=== PATIENT | female | born 1980 | race Caucasian/White ===

== ENCOUNTER 2016-10-14 21:54 | Emergency (ER) | payer BC, OTHER ==
[~2016-10-14] VITALS: Ht 170.2 cm; Wt 110.0 kg
[2016-10-14 23:15] LABS: HEMATOCRIT 37.4 % (36.0-46.0); MCH 28.5 PG (29.0-34.0); MCHC 32.9 G/DL (30.0-36.0); MCV 86.8 FL (83-99); PLATELET COUNT 307 K/uL (156-360); RBC DIS.WIDTH-CV 12.8 % (11.8-14.6); RBC DIS.WIDTH-SD 41.1 % (39-53); RED BLOOD COUNT 4.31 M/uL (3.80-5.20); WHITE BLOOD COUNT 12.3 K/uL (4.1-10.2)
[2016-10-14 23:26] LABS: CHLORIDE 105 mEq/L (99-109); POTASSIUM 3.8 mEq/L (3.7-5.4); SODIUM 140 mEq/L (136-147)
[2016-10-14 23:28] LABS: GLUCOSE 104 mg/dL (70-99)
[2016-10-14 23:29] LABS: ANION GAP 11 MEQ/L (2-14)
[2016-10-14 23:30] LABS: TOTAL BILIRUBIN 0.3 mg/dL (0.0-1.0)
[2016-10-14 23:31] LABS: ALKALINE PHOSPHATASE 77 IU/L (3-129)
[2016-10-14 23:33] LABS: UREA NITROGEN (BUN) 12 mg/dL (9-23)
[2016-10-14 23:35] LABS: GFR ESTIMATE (CALCULATED) > 59 mL/min/
[2016-10-14 23:45] LABS: QUANTITATIVE HCG < 4.0 MIU/ML
[2016-10-15 00:04] LABS: ADD MIUA? YES; BILIRUBIN NEGATIVE; BLOOD MODERATE; COLOR YELLOW ((YELLOW)); GLUCOSE (STRIP) NEGATIVE; KETONES 5; LEUKOCYTES TRACE; NITRITE NEGATIVE; PROTEIN (STRIP) 30; SPECIFIC GRAVITY 1.027 (1.000-1.030); UROBILINOGEN 0.2 MG/DL (0.2-1.0)
[2016-10-15 00:10] LABS: BACTERIA RARE /HPF; EPITHELIAL CELLS 1+ /HPF; MUCUS TRACE /LPF; RED BLOOD CELLS 30-40 /HPF (0-5); UCUL ADDED? NO; WHITE BLOOD CELLS 0-5 /HPF (0-5)
[2016-10-15 00:33] LABS: LIPASE 21 U/L (1.0-51.0)
[2016-10-15] MEDS ORDERED: NORCO 5/3251 TABLET PO (03:33)
[2016-10-15 03:59] VITALS: BP 106/69
== END 2016-10-15 04:06 | disposition home or self-care (01) ==
LOC: EME 21:54
DX: R10.32 Left lower quadrant pain (principal); N93.8 Other specified abnormal uterine and vaginal bleeding; D25.9 Leiomyoma of uterus, unspecified; R31.9 Hematuria, unspecified; N20.0 Calculus of kidney; Z85.850 Personal history of malignant neoplasm of thyroid; Z87.442 Personal history of urinary calculi
CPT/HCPCS: 74176; 76856; 80053; 81003; 83690; 84702; 85027; 99281; 99285; J1885; J2405; J3010; J7030

== ENCOUNTER 2017-06-26 10:06 | Day surgery (SDC) | payer BC, OTHER ==
[~2017-06-26] VITALS: Ht 170.2 cm; Wt 115.2 kg
[~2017-06-26 10:06] MED LIST: CELEXA40 MG PO; FLOMAX0.4 MG PO; KLONOPIN1 MG PO; NORCO 5/3251 TABLET PO; PROMETHAZINE HC25 M1 PO; SYNTHROID175 MCG PO
[2017-06-26] MEDS ORDERED: BENADRYL50 MG PO (10:25)
[2017-06-26 10:43] VITALS: BP 143/70
[2017-06-26 13:13] VITALS: BP 133/65
[2017-06-26 13:43] VITALS: BP 130/61
== END 2017-06-26 13:50 | disposition home or self-care (01) ==
LOC: SDC 10:06
DX: N20.1 Calculus of ureter (principal); E03.9 Hypothyroidism, unspecified; F41.9 Anxiety disorder, unspecified
CPT/HCPCS: 74420; 93005; C1726; C2625; J0131; J0690; J1100; J1170; J1885; J2250; J2405; J2550; J3010